=== PATIENT | male | born 1965 | race Caucasian/White ===

== ENCOUNTER 2022-08-09 20:55 | Inpatient (IN) | payer OTHER ==
[2022-08-09 21:32] VITALS: BMI 25.2
[2022-08-09] MEDS ORDERED: NALOXONE HCL 0.4 MG/ML VIAL IM PRN (22:17)
[2022-08-09] MEDS ORDERED: guaiFENesin 600 MG TABLET.ER (FP) PO PRN (22:17)
[2022-08-09] MEDS ORDERED: MAGNESIUM HYDROX 2400MG/30ML ORAL SUSPENSION 30 ML CUP PO PRN (22:17)
[2022-08-09] MEDS ORDERED: DICYCLOMINE HCL 10 MG CAPSULE PO PRN (22:17)
[2022-08-09] MEDS ORDERED: BENZONATATE 200 MG CAPSULE PO PRN (22:17)
[2022-08-09] MEDS ORDERED: ACETAMINOPHEN 325 MG TABLET (FP) PO PRN (22:17)
[2022-08-09] MEDS ORDERED: NALOXONE HCL (KLOXXADO) 8 MG SPRAY NS PRN (22:17)
[2022-08-09] MEDS ORDERED: hydrOXYzine PAMOATE 25 MG CAPSULE (FP) PO PRN (22:17)
[2022-08-09] MEDS ORDERED: LOPERAMIDE HCL 2 MG CAPSULE PO PRN (22:17)
[2022-08-09] MEDS ORDERED: MAG HYDROX/AL HYDROX/SIMETH 30 ML UNIT-DOSE CUP PO PRN (22:17)
[2022-08-09] MEDS ORDERED: POLYETHYLENE GLYCOL (HEALTHYLAX) 3350 17 GM PACKET PO PRN (22:17)
[2022-08-09] MEDS ORDERED: NICOTINE 10 MG CARTRIDGE (INHALER) IH PRN (22:17)
[2022-08-09] MEDS ORDERED: IBUPROFEN 600 MG TABLET (FP) PO PRN (22:17)
[2022-08-09] MEDS ORDERED: BISMUTH SUBSALICYLATE 524 MG/30 ML PO PRN (22:17)
[2022-08-09] MEDS ORDERED: IBUPROFEN 400 MG TABLET (FP) PO PRN (22:17)
[2022-08-09] MEDS ORDERED: BENZOCAINE/MENTHOL (CHLORASEPTIC ) LOZENGE MM PRN (22:17)
[2022-08-09] MEDS ORDERED: ONDANSETRON *ODT* 4 MG TABLET SL PRN (22:17)
[2022-08-10 09:40] VITALS: PULSE 82
[2022-08-10] MEDS ORDERED: PRENATAL VITAMINS W/ FOLIC ACID TABLET (FP) PO SCH (10:00)
[2022-08-10 12:54] VITALS: BP 126/75; RESP 17; TEMP 98.9
[2022-08-10] MEDS ORDERED: MELATONIN 5 MG TABLETS PO SCH (22:00)
[2022-08-10] MEDS ORDERED: THIAMINE HCL 100 MG TABLET (FP) PO SCH (22:00)
== END 2022-08-10 16:48 | disposition other institution (70) | DRG 774 ==
LOC: YASAS 20:55 → Y3N 23:54 → UNDOADMIN 23:54
PROVIDERS: ADMIT Allergy & Immunology; ATTEND Surgery
PROC: HZ2ZZZZ Detoxification Services for Substance Abuse Treatment (ICD-10-PCS; principal; 2022-08-09)
DX: F10.20 Alcohol dependence, uncomplicated (principal); F14.20 Cocaine dependence, uncomplicated; F17.210 Nicotine dependence, cigarettes, uncomplicated; F10.982 Alcohol use, unspecified with alcohol-induced sleep disorder; F19.24 Other psychoactive substance dependence with psychoactive substance-induced mood disorder; Z86.59 Personal history of other mental and behavioral disorders; Z28.310 Unvaccinated for COVID-19; Z28.9 Immunization not carried out for unspecified reason
CPT/HCPCS: 0241U-QW; 36415; 71046-TC-FY; 74177-TC; 80053; 81003; 83605; 83735; 85025; 85610; 85730; 86780; 87086; 99283-25; Q9967

== ENCOUNTER 2022-08-10 17:10 | Inpatient (IN) | payer OTHER ==
[2022-08-10] MEDS ORDERED: LOPERAMIDE HCL 2 MG CAPSULE PO PRN (20:01)
[2022-08-10] MEDS ORDERED: BENZONATATE 200 MG CAPSULE PO PRN (20:01)
[2022-08-10] MEDS ORDERED: MAGNESIUM HYDROX 2400MG/30ML ORAL SUSPENSION 30 ML CUP PO PRN (20:01)
[2022-08-10] MEDS ORDERED: P-EPHED 60MG/TRIPROLIDI 2.5MG TABLET PO PRN (20:01)
[2022-08-10] MEDS ORDERED: ACETAMINOPHEN 325 MG TABLET (FP) PO PRN (20:01)
[2022-08-10] MEDS ORDERED: BENZOCAINE/MENTHOL (CHLORASEPTIC ) LOZENGE MM PRN (20:01)
[2022-08-10] MEDS ORDERED: POLYETHYLENE GLYCOL (HEALTHYLAX) 3350 17 GM PACKET PO PRN (20:01)
[2022-08-10] MEDS ORDERED: guaiFENesin 600 MG TABLET.ER (FP) PO PRN (20:01)
[2022-08-10] MEDS ORDERED: NICOTINE POLACRILEX 2 MG GUM BUC PRN (20:01)
[2022-08-10] MEDS ORDERED: AMMONIUM LACTATE 12% LOTION 225 GM BOTTLE TP PRN (20:01)
[2022-08-10] MEDS ORDERED: IBUPROFEN 600 MG TABLET (FP) PO PRN (20:01)
[2022-08-10] MEDS ORDERED: COLLOIDAL OATMEAL 1 BAR EACH TP PRN (20:01)
[2022-08-10] MEDS ORDERED: NALOXONE HCL (KLOXXADO) 8 MG SPRAY NS PRN (20:01)
[2022-08-10] MEDS ORDERED: NICOTINE 10 MG CARTRIDGE (INHALER) IH PRN (20:01)
[2022-08-10] MEDS ORDERED: METHOCARBAMOL 500 MG TABLET PO PRN (20:01)
[2022-08-10] MEDS ORDERED: IBUPROFEN 400 MG TABLET (FP) PO PRN (20:01)
[2022-08-10] MEDS ORDERED: hydrOXYzine PAMOATE 25 MG CAPSULE (FP) PO PRN (20:01)
[2022-08-10] MEDS ORDERED: NALOXONE HCL 0.4 MG/ML VIAL IVPUSH PRN (20:01)
[2022-08-10] MEDS: THIAMINE HCL 100 MG TABLET (FP) PO SCH (23:08)
[2022-08-11] MEDS: PRENATAL VITAMINS W/ FOLIC ACID TABLET (FP) PO SCH (09:32)
[2022-08-11] MEDS: MELATONIN 5 MG TABLETS PO PRN (21:09)
[2022-08-11] MEDS: THIAMINE HCL 100 MG TABLET (FP) PO SCH (21:09)
[2022-08-12] MEDS: PRENATAL VITAMINS W/ FOLIC ACID TABLET (FP) PO SCH (09:41)
[2022-08-12] MEDS: THIAMINE HCL 100 MG TABLET (FP) PO SCH (21:04)
[2022-08-12] MEDS: MELATONIN 5 MG TABLETS PO PRN (21:04)
[2022-08-13] MEDS: PRENATAL VITAMINS W/ FOLIC ACID TABLET (FP) PO SCH (09:19)
[2022-08-13] MEDS: THIAMINE HCL 100 MG TABLET (FP) PO SCH (21:11)
[2022-08-13] MEDS: MELATONIN 5 MG TABLETS PO PRN (21:11)
[2022-08-14] MEDS: PRENATAL VITAMINS W/ FOLIC ACID TABLET (FP) PO SCH (09:37)
[2022-08-14 13:20] LABS: SYPHILIS W/ RPR CONF NON-REACTIVE (NONREACTIVE)
[2022-08-14] MEDS: THIAMINE HCL 100 MG TABLET (FP) PO SCH (21:29)
[2022-08-14] MEDS: MELATONIN 5 MG TABLETS PO PRN (21:29)
[2022-08-15] MEDS: PRENATAL VITAMINS W/ FOLIC ACID TABLET (FP) PO SCH (09:36)
[2022-08-15] MEDS: MELATONIN 5 MG TABLETS PO PRN (21:45)
[2022-08-15] MEDS: THIAMINE HCL 100 MG TABLET (FP) PO SCH (21:45)
[2022-08-16] MEDS: PRENATAL VITAMINS W/ FOLIC ACID TABLET (FP) PO SCH (09:22)
[2022-08-16] MEDS: MELATONIN 5 MG TABLETS PO PRN (21:20)
[2022-08-16] MEDS: THIAMINE HCL 100 MG TABLET (FP) PO SCH (21:21)
[2022-08-17] MEDS: PRENATAL VITAMINS W/ FOLIC ACID TABLET (FP) PO SCH (09:56)
[2022-08-17] MEDS: THIAMINE HCL 100 MG TABLET (FP) PO SCH (21:11)
[2022-08-17] MEDS: MELATONIN 5 MG TABLETS PO PRN (21:12)
[2022-08-17] MEDS: MAG HYDROX/AL HYDROX/SIMETH 30 ML UNIT-DOSE CUP PO PRN (21:12)
[2022-08-18] MEDS: PRENATAL VITAMINS W/ FOLIC ACID TABLET (FP) PO SCH (10:07)
[2022-08-18] MEDS: THIAMINE HCL 100 MG TABLET (FP) PO SCH (21:14)
[2022-08-18] MEDS: MELATONIN 5 MG TABLETS PO PRN (21:15)
[2022-08-18] MEDS: MAG HYDROX/AL HYDROX/SIMETH 30 ML UNIT-DOSE CUP PO PRN (21:15)
[2022-08-18] MEDS: traZODone HCL 50 MG TABLET (FP) PO SCH (21:15)
[2022-08-19] MEDS: PRENATAL VITAMINS W/ FOLIC ACID TABLET (FP) PO SCH (10:28)
[2022-08-19] MEDS: MAG HYDROX/AL HYDROX/SIMETH 30 ML UNIT-DOSE CUP PO PRN ×2 (10:29→21:06)
[2022-08-19] MEDS: MELATONIN 5 MG TABLETS PO PRN (21:03)
[2022-08-19] MEDS: SIMETHICONE 80 MG TAB.CHEW (FP) PO PRN (21:04)
[2022-08-19] MEDS: traZODone HCL 50 MG TABLET (FP) PO SCH (21:04)
[2022-08-19] MEDS: THIAMINE HCL 100 MG TABLET (FP) PO SCH (21:05)
[2022-08-20] MEDS: SIMETHICONE 80 MG TAB.CHEW (FP) PO PRN ×3 (06:20→21:44)
[2022-08-20] MEDS: PRENATAL VITAMINS W/ FOLIC ACID TABLET (FP) PO SCH (09:40)
[2022-08-20] MEDS: traZODone HCL 50 MG TABLET (FP) PO SCH (21:42)
[2022-08-20] MEDS: MELATONIN 5 MG TABLETS PO PRN (21:42)
[2022-08-20] MEDS: THIAMINE HCL 100 MG TABLET (FP) PO SCH (21:42)
[2022-08-21] MEDS: MAG HYDROX/AL HYDROX/SIMETH 30 ML UNIT-DOSE CUP PO PRN ×2 (06:36→15:03)
[2022-08-21] MEDS: PRENATAL VITAMINS W/ FOLIC ACID TABLET (FP) PO SCH (10:01)
[2022-08-21] MEDS: SIMETHICONE 80 MG TAB.CHEW (FP) PO PRN ×2 (10:01→21:46)
[2022-08-21] MEDS: THIAMINE HCL 100 MG TABLET (FP) PO SCH (21:44)
[2022-08-21] MEDS: traZODone HCL 50 MG TABLET (FP) PO SCH (21:44)
[2022-08-22] MEDS: PRENATAL VITAMINS W/ FOLIC ACID TABLET (FP) PO SCH (09:26)
[2022-08-22] MEDS: SIMETHICONE 80 MG TAB.CHEW (FP) PO PRN ×2 (09:27→21:30)
[2022-08-22] MEDS: MELATONIN 5 MG TABLETS PO PRN (21:29)
[2022-08-22] MEDS: THIAMINE HCL 100 MG TABLET (FP) PO SCH (21:29)
[2022-08-22] MEDS: traZODone HCL 50 MG TABLET (FP) PO SCH (21:30)
[2022-08-23] MEDS: PRENATAL VITAMINS W/ FOLIC ACID TABLET (FP) PO SCH (09:29)
[2022-08-23] MEDS: SIMETHICONE 80 MG TAB.CHEW (FP) PO PRN ×2 (09:30→21:30)
[2022-08-23] MEDS: THIAMINE HCL 100 MG TABLET (FP) PO SCH (21:30)
[2022-08-23] MEDS: MELATONIN 5 MG TABLETS PO PRN (21:30)
[2022-08-23] MEDS: traZODone HCL 50 MG TABLET (FP) PO SCH (21:30)
[2022-08-24 06:50] VITALS: BP 116/80; PULSE 94; RESP 16; TEMP 97.1
[2022-08-24] MEDS: PRENATAL VITAMINS W/ FOLIC ACID TABLET (FP) PO SCH (09:17)
[2022-08-24] MEDS: SIMETHICONE 80 MG TAB.CHEW (FP) PO PRN (09:18)
== END 2022-08-24 09:26 | disposition home or self-care (01) | DRG 772 ==
LOC: YASAS 17:10 → Y3E 17:14
PROVIDERS: ADMIT Allergy & Immunology; ATTEND Psychiatry & Neurology Pain Medicine
PROC: HZ42ZZZ Group Counseling for Substance Abuse Treatment, Cognitive-Behavioral (ICD-10-PCS; principal; 2022-08-10)
DX: F10.20 Alcohol dependence, uncomplicated (principal); F14.20 Cocaine dependence, uncomplicated; F17.210 Nicotine dependence, cigarettes, uncomplicated; F19.24 Other psychoactive substance dependence with psychoactive substance-induced mood disorder; F10.282 Alcohol dependence with alcohol-induced sleep disorder; Y92.238 Other place in hospital as the place of occurrence of the external cause; Y08.89XA Assault by other specified means, initial encounter
CPT/HCPCS: 36415; 86780; 86803; 87522

== ENCOUNTER 2022-09-06 12:58 | Emergency (ER) | payer OTHER ==
[2022-09-06 13:03] VITALS: BP 116/62; PULSE 95; RESP 18; TEMP 98.2; BMI 27.7
[2022-09-06] MEDS ORDERED: KETOROLAC TROMETHAMINE 30 MG/1 ML VIAL IM ONE (14:01)
[2022-09-06] MEDS ORDERED: KETOROLAC TROMETHAMINE 30 MG/1 ML VIAL ONE (14:03)
== END 2022-09-06 14:49 | disposition home or self-care (01) ==
LOC: JERFT 12:58
PROC: 3E0233Z Introduction of Anti-inflammatory into Muscle, Percutaneous Approach (ICD-10-PCS; principal; 2022-09-06)
DX: M25.512 Pain in left shoulder (principal)
CPT/HCPCS: 73030-TC-LT-FY; 99284-25

== ENCOUNTER 2022-09-13 13:59 | Emergency (ER) | payer OTHER ==
[2022-09-13 14:09] VITALS: BP 135/81; PULSE 88; RESP 18; TEMP 98.1; BMI 26.4
[2022-09-13] MEDS ORDERED: DEXAMETHASONE SOD PHOSPHATE 20 MG/5 ML VIAL IVPUSH ONE (15:32)
[2022-09-13] MEDS ORDERED: FAMOTIDINE 20 MG/50 ML IVPB 20 MG/50 ML MG IVPB ONE ×2 (15:33→15:42)
[2022-09-13] MEDS ORDERED: DEXAMETHASONE SOD PHOSPHATE 10 MG/1 ML VIAL ONE (15:42)
[2022-09-13 16:21] LABS: EOS % 3.9 % (0-4.5); HEMATOCRIT 43.4 % (35.4-49); HEMOGLOBIN 14.7 GM/dL (11.7-16.9); LYMPH % 20.8 % (8-40); MCH 29.2 pg (25.7-33.7); MCHC 33.9 g/dl (32.0-35.9); MEAN CELL VOLUME 85.9 fl (80-96); MEAN PLT VOLUME 7.4 fl (7.5-11.1); MONO % 6.3 % (3.8-10.2); PLATELET COUNT 225 10^3/uL (134-434); RBC 5.05 M/mm3 (4.00-5.60); RDW 14.7 % (11.9-15.9); WHITE BLOOD COUNT 7.9 K/mm3 (4.0-10.0)
[2022-09-13 16:39] LABS: POTASSIUM 4.1 mmol/L (3.5-5.1)
[2022-09-13 16:42] LABS: CALCIUM 9.4 mg/dL (8.5-10.1)
[2022-09-13 16:43] LABS: ALBUMIN 3.9 g/dl (3.4-5.0)
[2022-09-13 16:47] LABS: BILIRUBIN,TOTAL 0.3 mg/dL (0.2-1); TOT PROT 6.9 g/dl (6.4-8.2)
[2022-09-13 18:20] LABS: SYPHILIS W/ RPR CONF NON-REACTIVE (NONREACTIVE)
[2022-09-13 18:49] LABS: HIV INTERPRETATION NEGATIVE (NEGATIVE)
== END 2022-09-13 18:43 | disposition home or self-care (01) ==
LOC: JERFT 13:59
PROC: 3E033GC Introduction of Other Therapeutic Substance into Peripheral Vein, Percutaneous Approach (ICD-10-PCS; principal; 2022-09-13)
PROC: 3E033GC Introduction of Other Therapeutic Substance into Peripheral Vein, Percutaneous Approach (ICD-10-PCS; 2022-09-13)
PROC: 3E033GC Introduction of Other Therapeutic Substance into Peripheral Vein, Percutaneous Approach (ICD-10-PCS; 2022-09-13)
DX: R21 Rash and other nonspecific skin eruption (principal)
CPT/HCPCS: 36415; 80053; 85025; 86780; 87389; 87651; 99284-25

== ENCOUNTER 2022-09-21 12:52 | Emergency (ER) | payer OTHER ==
[2022-09-21 13:02] VITALS: BP 127/82; PULSE 83; RESP 18; TEMP 98.1; BMI 26.4
== END 2022-09-21 13:55 | disposition home or self-care (01) ==
LOC: JERFT 12:52
DX: R21 Rash and other nonspecific skin eruption (principal)
CPT/HCPCS: 99283-25

== ENCOUNTER 2022-11-11 09:50 | Inpatient (IN) | payer OTHER ==
[2022-11-11 11:40] VITALS: BMI 26.4
[2022-11-11] MEDS ORDERED: IBUPROFEN 600 MG TABLET (FP) PO PRN (13:31)
[2022-11-11] MEDS ORDERED: IBUPROFEN 400 MG TABLET (FP) PO PRN (13:31)
[2022-11-11] MEDS ORDERED: COLLOIDAL OATMEAL 1 BAR EACH TP PRN (13:31)
[2022-11-11] MEDS ORDERED: NICOTINE POLACRILEX 2 MG GUM BUC PRN (13:31)
[2022-11-11] MEDS ORDERED: LOPERAMIDE HCL 2 MG CAPSULE PO PRN (13:31)
[2022-11-11] MEDS ORDERED: P-EPHED 60MG/TRIPROLIDI 2.5MG TABLET PO PRN (13:31)
[2022-11-11] MEDS ORDERED: AMMONIUM LACTATE 12% LOTION 225 GM BOTTLE TP PRN (13:31)
[2022-11-11] MEDS ORDERED: ACETAMINOPHEN 325 MG TABLET (FP) PO PRN (13:31)
[2022-11-11] MEDS ORDERED: POLYETHYLENE GLYCOL (HEALTHYLAX) 3350 17 GM PACKET PO PRN (13:31)
[2022-11-11] MEDS ORDERED: MAG HYDROX/AL HYDROX/SIMETH 30 ML UNIT-DOSE CUP PO PRN (13:31)
[2022-11-11] MEDS ORDERED: guaiFENesin 600 MG TABLET.ER (FP) PO PRN (13:31)
[2022-11-11] MEDS ORDERED: hydrOXYzine PAMOATE 25 MG CAPSULE (FP) PO PRN (13:31)
[2022-11-11] MEDS ORDERED: MAGNESIUM HYDROX 2400MG/30ML ORAL SUSPENSION 30 ML CUP PO PRN (13:31)
[2022-11-11] MEDS ORDERED: BENZONATATE 200 MG CAPSULE PO PRN (13:31)
[2022-11-11] MEDS ORDERED: BENZOCAINE/MENTHOL (CHLORASEPTIC ) LOZENGE MM PRN (13:31)
[2022-11-11] MEDS: MELATONIN 5 MG TABLETS PO SCH (21:37)
[2022-11-11] MEDS: THIAMINE HCL 100 MG TABLET (FP) PO SCH (21:37)
[2022-11-12] MEDS ORDERED: PRENATAL VITAMINS W/ FOLIC ACID TABLET (FP) PO SCH (10:00)
[2022-11-12] MEDS ORDERED: PRENATAL VITAMINS W/ FOLIC ACID TABLET (FP) PO PRN (10:16)
[2022-11-12 11:37] LABS: POTASSIUM 4.4 mmol/L (3.5-5.1)
[2022-11-12 11:47] LABS: HEMATOCRIT 43.6 % (35.4-49); HEMOGLOBIN 14.3 GM/dL (11.7-16.9); MCH 29.7 pg (25.7-33.7); MCHC 32.9 g/dl (32.0-35.9); MEAN CELL VOLUME 90.3 fl (80-96); MEAN PLT VOLUME 8.5 fl (7.5-11.1); PLATELET COUNT 219 10^3/uL (134-434); RBC 4.83 M/mm3 (4.00-5.60); RDW 14.5 % (11.9-15.9); WHITE BLOOD COUNT 7.1 K/mm3 (4.0-10.0)
[2022-11-12 12:07] LABS: ALBUMIN 3.4 g/dl (3.4-5.0); BLOOD UREA NITROGEN 14.5 mg/dL (7-18); CALCIUM 8.3 mg/dL (8.5-10.1)
[2022-11-12 12:08] LABS: CREATININE 0.9 mg/dL (0.55-1.3)
[2022-11-12 12:09] LABS: BILIRUBIN,TOTAL 0.3 mg/dL (0.2-1)
[2022-11-12 12:10] LABS: TOT PROT 5.8 g/dl (6.4-8.2)
[2022-11-12] MEDS: MELATONIN 5 MG TABLETS PO SCH (21:53)
[2022-11-12] MEDS: THIAMINE HCL 100 MG TABLET (FP) PO SCH (21:54)
[2022-11-13 10:11] VITALS: BP 131/77; PULSE 79; RESP 18; TEMP 96.9
[2022-11-13] MEDS: THIAMINE HCL 100 MG TABLET (FP) PO SCH (22:53)
[2022-11-13] MEDS: MELATONIN 5 MG TABLETS PO SCH (22:53)
== END 2022-11-13 23:55 | disposition short-term general hospital (02) | DRG 774 ==
LOC: YASAS 09:50 → Y3E 15:20
PROVIDERS: ADMIT Allergy & Immunology; ATTEND Psychiatry & Neurology Pain Medicine
PROC: HZ2ZZZZ Detoxification Services for Substance Abuse Treatment (ICD-10-PCS; principal; 2022-11-11)
DX: F14.20 Cocaine dependence, uncomplicated (principal); F12.10 Cannabis abuse, uncomplicated; F17.210 Nicotine dependence, cigarettes, uncomplicated; R07.9 Chest pain, unspecified; Z28.310 Unvaccinated for COVID-19; Z28.9 Immunization not carried out for unspecified reason
CPT/HCPCS: 36415; 80053; 85027; 86780; 87635; 87811

== ENCOUNTER 2022-11-13 10:50 | Observation (INO) | payer OTHER ==
[2022-11-13 11:38] VITALS: BMI 23.7
[2022-11-13 12:07] LABS: BASO % 0.8 % (0-2.0); EOS % 2.2 % (0-4.5); HEMATOCRIT 43.6 % (35.4-49); HEMOGLOBIN 14.5 GM/dL (11.7-16.9); LYMPH % 14.7 % (8-40); MCH 29.5 pg (25.7-33.7); MCHC 33.2 g/dl (32.0-35.9); MEAN PLT VOLUME 8.1 fl (7.5-11.1); MONO % 7.4 % (3.8-10.2); NEUT % 74.9 % (42.8-82.8); PLATELET COUNT 241 10^3/uL (134-434); RDW 14.5 % (11.9-15.9)
[2022-11-13 12:15] LABS: INR 0.99 (0.83-1.09); PROTHROMBIN TIME (PATIENT) 11.5 SEC (9.7-13.0)
[2022-11-13 12:22] LABS: POTASSIUM 4.4 mmol/L (3.5-5.1)
[2022-11-13 12:24] LABS: ALBUMIN 3.6 g/dl (3.4-5.0); BLOOD UREA NITROGEN 15.8 mg/dL (7-18); CALCIUM 8.8 mg/dL (8.5-10.1)
[2022-11-13 12:29] LABS: BILIRUBIN,TOTAL 0.3 mg/dL (0.2-1); CREATININE 0.8 mg/dL (0.55-1.3); TOT PROT 6.3 g/dl (6.4-8.2)
[2022-11-13] MEDS ORDERED: ACETAMINOPHEN 1000 MG/100 ML BAG IVPB ONE (13:31)
[2022-11-13] MEDS ORDERED: METHOCARBAMOL 500 MG TABLET PO ONE (13:31)
[2022-11-13] MEDS ORDERED: ACETAMINOPHEN INJECTION 100 ML IVPB ONE (14:56)
[2022-11-13] MEDS ORDERED: METHOCARBAMOL 500 MG TABLET ONE (14:56)
[2022-11-13] MEDS ORDERED: IBUPROFEN 600 MG TABLET (FP) PO PRN (17:14)
[2022-11-13] MEDS ORDERED: AZITHROMYCIN IVPB 500 MG/250 ML BAG IVPB SCH (17:15)
[2022-11-13] MEDS ORDERED: CEFTRIAXONE 1 GM/50 ML BAG ONE (18:08)
[2022-11-13] MEDS ORDERED: AZITHROMYCIN IVPB 500 MG/250 ML BAG IVPB ONE (18:21)
[2022-11-13] MEDS: HEPARIN NA (PORCINE) 5,000 UNITS/ML 1ML VIAL SQ SCH (22:06)
[2022-11-13] MEDS: METHOCARBAMOL 500 MG TABLET PO SCH (22:08)
[2022-11-13] MEDS: traZODone HCL 50 MG TABLET (FP) PO SCH (22:08)
[2022-11-14] MEDS: AMOX TR/POT CLAV 875MG/125MG TABLETS (FP) PO SCH ×2 (08:42→17:18)
[2022-11-14] MEDS: NICOTINE 14 MG/24 HOURS TOPICAL PATCH TD SCH (09:36)
[2022-11-14] MEDS: METHOCARBAMOL 500 MG TABLET PO SCH ×2 (09:36→21:38)
[2022-11-14] MEDS: HEPARIN NA (PORCINE) 5,000 UNITS/ML 1ML VIAL SQ SCH ×2 (09:36→21:38)
[2022-11-14] MEDS ORDERED: HYDROCORTISONE 1% TOPICAL CREAM 30 GM TUBE TP PRN (10:45)
[2022-11-14] MEDS: traZODone HCL 50 MG TABLET (FP) PO SCH (21:38)
[2022-11-15] MEDS: DOXYCYCLINE HYCLATE 100 MG CAPSULE PO SCH ×2 (09:27→19:10)
[2022-11-15] MEDS: HEPARIN NA (PORCINE) 5,000 UNITS/ML 1ML VIAL SQ SCH ×2 (09:27→22:08)
[2022-11-15] MEDS: NICOTINE 14 MG/24 HOURS TOPICAL PATCH TD SCH (09:28)
[2022-11-15] MEDS: METHOCARBAMOL 500 MG TABLET PO SCH ×2 (09:28→22:07)
[2022-11-15 11:19] LABS: BASO % 0.8 % (0-2.0); EOS % 2.7 % (0-4.5); HEMATOCRIT 43.8 % (35.4-49); HEMOGLOBIN 15.3 GM/dL (11.7-16.9); LYMPH % 16.4 % (8-40); MCH 30.3 pg (25.7-33.7); MEAN CELL VOLUME 86.6 fl (80-96); MEAN PLT VOLUME 7.7 fl (7.5-11.1); MONO % 6.4 % (3.8-10.2); NEUT % 73.7 % (42.8-82.8); PLATELET COUNT 257 10^3/uL (134-434); RBC 5.05 M/mm3 (4.00-5.60); RDW 14.4 % (11.9-15.9); WHITE BLOOD COUNT 7.1 K/mm3 (4.0-10.0)
[2022-11-15 11:42] LABS: POTASSIUM 4.4 mmol/L (3.5-5.1)
[2022-11-15 11:47] LABS: ALBUMIN 3.8 g/dl (3.4-5.0); BLOOD UREA NITROGEN 15.7 mg/dL (7-18)
[2022-11-15 11:48] LABS: CALCIUM 8.7 mg/dL (8.5-10.1); MAGNESIUM 2.1 mg/dL (1.8-2.4)
[2022-11-15 11:50] LABS: CREATININE 0.9 mg/dL (0.55-1.3)
[2022-11-15 11:51] LABS: TOT PROT 6.8 g/dl (6.4-8.2)
[2022-11-15 11:52] LABS: BILIRUBIN,TOTAL 0.5 mg/dL (0.2-1)
[2022-11-15] MEDS: traZODone HCL 50 MG TABLET (FP) PO SCH (22:08)
[2022-11-16] MEDS: METHOCARBAMOL 500 MG TABLET PO SCH ×2 (10:11→21:58)
[2022-11-16] MEDS: DOXYCYCLINE HYCLATE 100 MG CAPSULE PO SCH ×2 (10:11→18:52)
[2022-11-16] MEDS: NICOTINE 14 MG/24 HOURS TOPICAL PATCH TD SCH (10:11)
[2022-11-16] MEDS: HEPARIN NA (PORCINE) 5,000 UNITS/ML 1ML VIAL SQ SCH ×2 (10:11→22:00)
[2022-11-16 15:28] LABS: EOS % 3.6 % (0-4.5); HEMATOCRIT 42.2 % (35.4-49); HEMOGLOBIN 14.5 GM/dL (11.7-16.9); LYMPH % 20.2 % (8-40); MCHC 34.3 g/dl (32.0-35.9); MEAN CELL VOLUME 87.4 fl (80-96); MEAN PLT VOLUME 7.6 fl (7.5-11.1); MONO % 7.6 % (3.8-10.2); NEUT % 67.6 % (42.8-82.8); PLATELET COUNT 252 10^3/uL (134-434); RBC 4.83 M/mm3 (4.00-5.60); RDW 14.6 % (11.9-15.9); WHITE BLOOD COUNT 7.2 K/mm3 (4.0-10.0)
[2022-11-16 15:47] LABS: POTASSIUM 4.4 mmol/L (3.5-5.1)
[2022-11-16 15:51] LABS: CALCIUM 8.9 mg/dL (8.5-10.1)
[2022-11-16 15:53] LABS: ALBUMIN 3.7 g/dl (3.4-5.0)
[2022-11-16 15:57] LABS: TOT PROT 6.4 g/dl (6.4-8.2)
[2022-11-16 15:58] LABS: BILIRUBIN,TOTAL 0.3 mg/dL (0.2-1)
[2022-11-16 19:17] LABS: COCAINE, UR NEGATIVE (NEGATIVE); URINE AMPHETAMINES NEGATIVE (NEGATIVE)
[2022-11-16 19:18] LABS: OPIATES, URI NEGATIVE (NEGATIVE); PHENCYCLIDINE,URINE NEGATIVE (NEGATIVE)
[2022-11-16 19:29] LABS: METHADONE, UR NEGATIVE (NEGATIVE); URINE BARBITURATES NEGATIVE (NEGATIVE); URINE BENZODIAZEPINES NEGATIVE (NEGATIVE)
[2022-11-16] MEDS: traZODone HCL 50 MG TABLET (FP) PO SCH (21:59)
[2022-11-17] MEDS: HEPARIN NA (PORCINE) 5,000 UNITS/ML 1ML VIAL SQ SCH (10:34)
[2022-11-17] MEDS: METHOCARBAMOL 500 MG TABLET PO SCH (12:01)
[2022-11-17] MEDS: NICOTINE 14 MG/24 HOURS TOPICAL PATCH TD SCH (12:01)
[2022-11-17] MEDS: DOXYCYCLINE HYCLATE 100 MG CAPSULE PO SCH (12:02)
[2022-11-17 15:26] VITALS: BP 118/74; PULSE 85; RESP 18; TEMP 97.9
== END 2022-11-17 18:51 | disposition home or self-care (01) ==
LOC: JER 10:50 → JERBED 17:01 → J8W 21:06
PROVIDERS: ADMIT Internal Medicine; ATTEND Nurse Practitioner Family
PROC: 3E033NZ Introduction of Analgesics, Hypnotics, Sedatives into Peripheral Vein, Percutaneous Approach (ICD-10-PCS; principal; 2022-11-13)
PROC: 3E03329 Introduction of Other Anti-infective into Peripheral Vein, Percutaneous Approach (ICD-10-PCS; 2022-11-13)
DX: J18.9 Pneumonia, unspecified organism (principal); F14.20 Cocaine dependence, uncomplicated; F10.20 Alcohol dependence, uncomplicated; F31.9 Bipolar disorder, unspecified; F19.94 Other psychoactive substance use, unspecified with psychoactive substance-induced mood disorder; R07.9 Chest pain, unspecified; M25.60 Stiffness of unspecified joint, not elsewhere classified; R21 Rash and other nonspecific skin eruption; F17.200 Nicotine dependence, unspecified, uncomplicated
CPT/HCPCS: 36415; 71045-TC-FY; 71046-TC-FY; 73502-TC-RT-FY; 78452-TC; 80053; 80061; 80307; 82550; 83036; 83735; 84443; 84484; 85025; 85610; 85651; 86140; 86618; 87040; 87635; 87798; 93005; 93010; 93017; 93306-TC; 96365; 96375; 97116-GP; 97161-GP; 99285-25; A9502; G0378; J1644

== ENCOUNTER 2022-11-22 16:42 | Emergency (ER) | payer OTHER ==
[2022-11-22 17:14] VITALS: BP 107/65; PULSE 74; RESP 18; TEMP 98.2; BMI 26.4
[2022-11-22] MEDS ORDERED: IBUPROFEN 600 MG TABLET (FP) PO ONE ×2 (21:43→22:07)
== END 2022-11-22 23:18 | disposition home or self-care (01) ==
LOC: JER 16:42
DX: S90.31XA Contusion of right foot, initial encounter (principal); R22.41 Localized swelling, mass and lump, right lower limb; W19.XXXA Unspecified fall, initial encounter
CPT/HCPCS: 73562-TC-RT-FY; 73610-TC-RT-FY; 73630-TC-RT-FY

== ENCOUNTER 2022-12-20 10:49 | Emergency (ER) | payer OTHER ==
[2022-12-20 11:08] VITALS: BP 148/90; PULSE 95; RESP 18; TEMP 97.2; BMI 26.4
== END 2022-12-20 13:14 | disposition home or self-care (01) ==
LOC: JER 10:49 → JERFT 10:49
DX: J06.9 Acute upper respiratory infection, unspecified (principal); R07.0 Pain in throat; R09.89 Other specified symptoms and signs involving the circulatory and respiratory systems; R05.9 Cough, unspecified; Z20.822 Contact with and (suspected) exposure to COVID-19
CPT/HCPCS: 0241U-QW; 71046-TC-FY; 99284-25

== ENCOUNTER 2023-03-29 18:09 | Emergency (ER) | payer OTHER ==
[2023-03-29 18:21] VITALS: BP 112/69; PULSE 87; RESP 18; TEMP 97.9; BMI 28.0
== END 2023-03-29 19:51 | disposition home or self-care (01) ==
LOC: JERFT 18:09
DX: R05.9 Cough, unspecified (principal); R09.82 Postnasal drip; Z20.822 Contact with and (suspected) exposure to COVID-19
CPT/HCPCS: 0241U-QW; 71046-TC-FY; 99284-25

== ENCOUNTER 2023-04-09 00:52 | Emergency (ER) | payer OTHER ==
[2023-04-09 01:02] VITALS: BP 131/78; PULSE 82; RESP 20; TEMP 97.5; BMI 26.4
[2023-04-09] MEDS ORDERED: LIDOCAINE 5% TOPICAL PATCH TP ONE (02:31)
[2023-04-09] MEDS ORDERED: KETOROLAC TROMETHAMINE 15 MG/ML VIAL IM ONE (02:31)
[2023-04-09] MEDS ORDERED: KETOROLAC TROMETHAMINE 15 MG/ML VIAL ONE (02:35)
[2023-04-09] MEDS ORDERED: LIDOCAINE 4% PATCH TP ONE (02:35)
[2023-04-09] MEDS ORDERED: LIDOCAINE PATCH REMOVAL MC SCH (22:00)
== END 2023-04-09 04:29 | disposition home or self-care (01) ==
LOC: JER 00:52
PROC: 3E0233Z Introduction of Anti-inflammatory into Muscle, Percutaneous Approach (ICD-10-PCS; principal; 2023-04-09)
DX: M79.604 Pain in right leg (principal); M54.50 Low back pain, unspecified; M25.551 Pain in right hip; R26.2 Difficulty in walking, not elsewhere classified; R46.1 Bizarre personal appearance
CPT/HCPCS: 73521-TC-FY; 99284-25

== ENCOUNTER 2023-07-04 09:20 | Inpatient (IN) | payer OTHER ==
[2023-07-04 09:51] VITALS: BMI 24.5
[2023-07-04] MEDS ORDERED: IBUPROFEN 600 MG TABLET (FP) PO PRN (10:45)
[2023-07-04] MEDS ORDERED: MAGNESIUM HYDROX 2400MG/30ML ORAL SUSPENSION 30 ML CUP PO PRN (10:45)
[2023-07-04] MEDS ORDERED: guaiFENesin 600 MG TABLET.ER (FP) PO PRN (10:45)
[2023-07-04] MEDS ORDERED: LOPERAMIDE HCL 2 MG CAPSULE PO PRN (10:45)
[2023-07-04] MEDS ORDERED: MAG HYDROX/AL HYDROX/SIMETH 30 ML UNIT-DOSE CUP PO PRN (10:45)
[2023-07-04] MEDS ORDERED: BENZOCAINE/MENTHOL (CHLORASEPTIC ) LOZENGE MM PRN (10:45)
[2023-07-04] MEDS ORDERED: IBUPROFEN 400 MG TABLET (FP) PO PRN (10:45)
[2023-07-04] MEDS ORDERED: NALOXONE HCL (KLOXXADO) 8 MG SPRAY NS PRN (10:45)
[2023-07-04] MEDS ORDERED: POLYETHYLENE GLYCOL (HEALTHYLAX) 3350 17 GM PACKET PO PRN (10:45)
[2023-07-04] MEDS ORDERED: NALOXONE HCL 0.4 MG/ML VIAL IM PRN (10:45)
[2023-07-04] MEDS ORDERED: BENZONATATE 200 MG CAPSULE PO PRN (10:45)
[2023-07-04] MEDS ORDERED: ACETAMINOPHEN 325 MG TABLET (FP) PO PRN (10:45)
[2023-07-04] MEDS: PRENATAL VITAMINS W/ FOLIC ACID TABLET (FP) PO SCH (13:14)
[2023-07-04 16:50] LABS: HIV INTERPRETATION NEGATIVE (NEGATIVE)
[2023-07-04 22:10] LABS: PH,URINE 8.5 (5.0-8.0); URINE APPEARANCE TURBID; URINE BILIRUBIN NEGATIVE (NEGATIVE); URINE COLOR YELLOW; URINE GLUCOSE (UA) NEGATIVE (NEGATIVE); URINE KETONE NEGATIVE (NEGATIVE); URINE LEUK ESTERASE NEGATIVE (NEGATIVE); URINE NITRITE NEGATIVE (NEGATIVE); URINE PROTEIN NEGATIVE (NEGATIVE); URINE UROBILINOGEN 0.2 mg/dL (0.2-1.0)
[2023-07-04] MEDS: THIAMINE 100 MG TABLET PO SCH (22:22)
[2023-07-04] MEDS: MELATONIN 5 MG TABLETS PO SCH (22:22)
[2023-07-05 11:49] LABS: HEMATOCRIT 44.2 % (35.4-49); MCH 29.8 pg (25.7-33.7); MCHC 33.9 g/dl (32.0-35.9); MEAN PLT VOLUME 7.6 fl (7.5-11.1); PLATELET COUNT 270 10^3/uL (134-434); RBC 5.02 M/mm3 (4.00-5.60); RDW 14.8 % (11.9-15.9)
[2023-07-05 11:53] LABS: POTASSIUM 4.3 mmol/L (3.5-5.1)
[2023-07-05 11:55] LABS: ALBUMIN 3.6 g/dl (3.4-5.0); BLOOD UREA NITROGEN 14.6 mg/dL (7-18)
[2023-07-05 11:58] LABS: CREATININE 0.8 mg/dL (0.55-1.3)
[2023-07-05 12:00] LABS: BILIRUBIN,TOTAL 0.3 mg/dL (0.2-1); TOT PROT 6.4 g/dl (6.4-8.2)
[2023-07-05 12:21] LABS: SYPHILIS W/ RPR CONF NON-REACTIVE (NONREACTIVE)
[2023-07-05] MEDS: BACLOFEN 10 MG TABLET (FP) PO SCH (21:49)
[2023-07-06] MEDS ORDERED: TUBERCULIN PPD 5 TU/0.1ML VIAL ID ONE (10:55)
[2023-07-06] MEDS: TUBERCULIN PPD 5 TU/0.1ML VIAL ID ONE (11:00)
[2023-07-07] MEDS: hydrOXYzine PAMOATE 25 MG CAPSULE (FP) PO PRN (21:34)
[2023-07-09 12:35] LABS: INR 0.82 (0.83-1.09); PROTHROMBIN TIME (PATIENT) 9.3 SEC (9.7-13.0)
[2023-07-12] MEDS: CHOLECALCIFEROL (VIT D3) 400 UNIT (10 MCG) TABLET PO SCH (09:42)
[2023-07-13 01:56] VITALS: RESP 18
[2023-07-13] MEDS: CLOTRIMAZOLE 1% CREAM TP SCH (14:53)
[2023-07-15] MEDS: LACTULOSE 20 GM/30 ML UDC (FOR ORAL USE ONLY) PO SCH (14:34)
[2023-07-18 06:46] VITALS: BP 127/73; PULSE 90; TEMP 97.4
== END 2023-07-18 13:19 | disposition home or self-care (01) | DRG 772 ==
LOC: YASAS 09:20 → Y3NR 13:19 → Y5N 07-05 18:58
PROVIDERS: ADMIT Allergy & Immunology; ATTEND Psychiatry & Neurology Pain Medicine
PROC: HZ42ZZZ Group Counseling for Substance Abuse Treatment, Cognitive-Behavioral (ICD-10-PCS; principal; 2023-07-04)
DX: F14.20 Cocaine dependence, uncomplicated (principal); F10.20 Alcohol dependence, uncomplicated; F17.210 Nicotine dependence, cigarettes, uncomplicated; F25.9 Schizoaffective disorder, unspecified; F90.9 Attention-deficit hyperactivity disorder, unspecified type; R21 Rash and other nonspecific skin eruption; M54.59 Other low back pain; G89.29 Other chronic pain; M79.671 Pain in right foot; E72.20 Disorder of urea cycle metabolism, unspecified; R10.2 Pelvic and perineal pain; B35.1 Tinea unguium; Z56.0 Unemployment, unspecified; Z59.00 Homelessness unspecified
CPT/HCPCS: 36415; 80053; 80305; 80307; 81003; 82140; 82306; 83735; 85027; 85610; 86780; 86803; 87389; 87491; 87522; 87591; 87661; 87811; J0475

== ENCOUNTER 2023-07-12 18:06 | Emergency (ER) | payer OTHER ==
[2023-07-12 18:32] VITALS: BP 135/81; PULSE 85; RESP 18; TEMP 98.1; BMI 23.7
[2023-07-12 19:43] LABS: URINE APPEARANCE CLEAR; URINE BILIRUBIN NEGATIVE (NEGATIVE); URINE COLOR YELLOW; URINE GLUCOSE (UA) NEGATIVE (NEGATIVE); URINE KETONE NEGATIVE (NEGATIVE); URINE LEUK ESTERASE NEGATIVE (NEGATIVE); URINE NITRITE NEGATIVE (NEGATIVE); URINE PROTEIN NEGATIVE (NEGATIVE); URINE UROBILINOGEN 0.2 mg/dL (0.2-1.0)
[2023-07-12 19:51] LABS: INR 0.93 (0.83-1.09); PROTHROMBIN TIME (PATIENT) 10.5 SEC (9.7-13.0)
[2023-07-12 19:53] LABS: ACTIVATED PTT 26.6 SECONDS (25.2-36.5)
[2023-07-12 19:58] LABS: BASO % 1.5 % (0-2.0); EOS % 2.7 % (0-4.5); HEMATOCRIT 37.6 % (35.4-49); HEMOGLOBIN 12.9 GM/dL (11.7-16.9); LYMPH % 24.1 % (8-40); MCH 29.9 pg (25.7-33.7); MCHC 34.2 g/dl (32.0-35.9); MEAN CELL VOLUME 87.4 fl (80-96); MEAN PLT VOLUME 7.2 fl (7.5-11.1); MONO % 9.9 % (3.8-10.2); NEUT % 61.8 % (42.8-82.8); PLATELET COUNT 240 10^3/uL (134-434); RBC 4.31 M/mm3 (4.00-5.60); RDW 14.5 % (11.9-15.9); WHITE BLOOD COUNT 7.6 K/mm3 (4.0-10.0)
[2023-07-12 20:03] LABS: POTASSIUM 4.4 mmol/L (3.5-5.1)
[2023-07-12 20:07] LABS: ALBUMIN 3.6 g/dl (3.4-5.0); BLOOD UREA NITROGEN 21.5 mg/dL (7-18); CALCIUM 8.8 mg/dL (8.5-10.1)
[2023-07-12 20:08] LABS: MAGNESIUM 2.1 mg/dL (1.8-2.4)
[2023-07-12 20:10] LABS: CREATININE 0.9 mg/dL (0.55-1.3)
[2023-07-12 20:12] LABS: BILIRUBIN,TOTAL 0.3 mg/dL (0.2-1); TOT PROT 6.4 g/dl (6.4-8.2)
== END 2023-07-13 01:43 | disposition home or self-care (01) ==
LOC: JER 18:06
DX: N50.82 Scrotal pain (principal); R10.2 Pelvic and perineal pain; R19.7 Diarrhea, unspecified; R68.83 Chills (without fever)
CPT/HCPCS: 36415; 71046-TC-FY; 74176-TC; 76870-TC; 80053; 81003; 83605; 83690; 83735; 85025; 85610; 85730; 87086; 93005; 93010; 99285-25

== ENCOUNTER 2023-08-14 16:23 | Observation (INO) | payer OTHER ==
[2023-08-14 17:21] LABS: BASO % 1.2 % (0-2.0); EOS % 4.3 % (0-4.5); HEMATOCRIT 39.5 % (35.4-49); HEMOGLOBIN 13.5 GM/dL (11.7-16.9); LYMPH % 19.4 % (8-40); MCH 29.6 pg (25.7-33.7); MCHC 34.1 g/dl (32.0-35.9); MEAN PLT VOLUME 7.4 fl (7.5-11.1); MONO % 9.1 % (3.8-10.2); PLATELET COUNT 248 10^3/uL (134-434); RBC 4.54 M/mm3 (4.00-5.60); RDW 14.3 % (11.9-15.9); WHITE BLOOD COUNT 5.9 K/mm3 (4.0-10.0)
[2023-08-14 17:28] LABS: INR 1.04 (0.83-1.09); PROTHROMBIN TIME (PATIENT) 11.7 SEC (9.7-13.0)
[2023-08-14 17:30] LABS: ACTIVATED PTT 30.7 SECONDS (25.2-36.5)
[2023-08-14 17:43] LABS: CHLORIDE 110 mmol/L (98-107); POTASSIUM 3.9 mmol/L (3.5-5.1); SODIUM 143 mmol/L (136-145)
[2023-08-14 17:45] LABS: CALCIUM 8.6 mg/dL (8.5-10.1)
[2023-08-14 17:46] LABS: ALBUMIN 3.5 g/dl (3.4-5.0); ANION GAP 4 mmol/L (4-13); CO2 30 mmol/L (21-32); GLUCOSE,RANDOM 80 mg/dL (74-106); MAGNESIUM 1.9 mg/dL (1.8-2.4)
[2023-08-14 17:48] LABS: SGPT/ALT 20 U/L (13-61)
[2023-08-14 17:49] LABS: CREATININE 1.1 mg/dL (0.55-1.3); SGOT/AST 13 U/L (15-37)
[2023-08-14 17:50] LABS: BILIRUBIN,TOTAL 0.4 mg/dL (0.2-1); TOT PROT 6.2 g/dl (6.4-8.2)
[2023-08-14 17:52] LABS: ALK PHOS 102 U/L (45-117)
[2023-08-14] MEDS: LACTATED RINGERS SOLUTION 1000 ML INFUS.BAG IV ONE (19:12)
[2023-08-14 20:47] LABS: URINE APPEARANCE CLEAR; URINE BILIRUBIN NEGATIVE (NEGATIVE); URINE COLOR YELLOW; URINE GLUCOSE (UA) NEGATIVE (NEGATIVE); URINE KETONE NEGATIVE (NEGATIVE); URINE LEUK ESTERASE NEGATIVE (NEGATIVE); URINE NITRITE NEGATIVE (NEGATIVE); URINE PROTEIN NEGATIVE (NEGATIVE)
[2023-08-14 21:01] LABS: METHADONE, UR NEGATIVE (NEGATIVE); URINE AMPHETAMINES NEGATIVE (NEGATIVE)
[2023-08-14 21:02] LABS: OPIATES, URI NEGATIVE (NEGATIVE); PHENCYCLIDINE,URINE NEGATIVE (NEGATIVE); URINE BARBITURATES NEGATIVE (NEGATIVE)
[2023-08-14 21:14] LABS: COCAINE, UR POSITIVE (NEGATIVE); URINE BENZODIAZEPINES POSITIVE (NEGATIVE)
[2023-08-15 02:34] LABS: ARTERIAL BLD GAS O2 SATURATION 88.1 % (95-98); ARTERIAL BLOOD GAS BASE EXCESS -1.3 mmol/L (-2-2); ARTERIAL BLOOD GAS PO2 55.8 mmHg (80-100); ARTERIAL BLOOD GAS pH 7.367 (7.350-7.450)
[2023-08-15 02:42] LABS: ALLENS TEST POSITIVE
[2023-08-15 03:38] VITALS: BMI 23.3
[2023-08-15 09:31] LABS: HEMATOCRIT 40.7 % (35.4-49); HEMOGLOBIN 13.7 GM/dL (11.7-16.9); MCH 29.6 pg (25.7-33.7); MCHC 33.7 g/dl (32.0-35.9); MEAN CELL VOLUME 87.7 fl (80-96); MEAN PLT VOLUME 7.8 fl (7.5-11.1); PLATELET COUNT 230 10^3/uL (134-434); RBC 4.64 M/mm3 (4.00-5.60); RDW 13.8 % (11.9-15.9); WHITE BLOOD COUNT 5.3 K/mm3 (4.0-10.0)
[2023-08-15 09:56] LABS: POTASSIUM 4.4 mmol/L (3.5-5.1)
[2023-08-15 09:59] LABS: BLOOD UREA NITROGEN 12.1 mg/dL (7-18); CALCIUM 8.6 mg/dL (8.5-10.1)
[2023-08-15 10:00] LABS: ALBUMIN 3.4 g/dl (3.4-5.0)
[2023-08-15] MEDS ORDERED: ENOXAPARIN NA (PORCINE) 40 MG/0.4 ML DISP.SYRIN SQ SCH (10:00)
[2023-08-15 10:02] LABS: CREATININE 0.9 mg/dL (0.55-1.3); PHOSPHOROUS 3.1 mg/dL (2.5-4.9)
[2023-08-15 10:04] LABS: BILIRUBIN,TOTAL 0.3 mg/dL (0.2-1); TOT PROT 5.9 g/dl (6.4-8.2)
[2023-08-15] MEDS ORDERED: LORazepam 1 MG TABLET PO PRN ×3 (10:44→16:57)
[2023-08-15] MEDS: MULTIVITAMINS (DAILY MVI) TABLET (FP) PO SCH (17:29)
[2023-08-15] MEDS: THIAMINE 100 MG TABLET PO SCH (17:30)
[2023-08-15] MEDS: LACTATED RINGERS SOLUTION 1,000 ML/1,000 ML INFUS.BAG IV SCH (17:30)
[2023-08-15] MEDS: FOLIC ACID 1 MG TABLET (FP) PO SCH (17:30)
[2023-08-16 07:37] LABS: HEMATOCRIT 39.8 % (35.4-49); HEMOGLOBIN 13.7 GM/dL (11.7-16.9); MCH 29.8 pg (25.7-33.7); MCHC 34.5 g/dl (32.0-35.9); MEAN CELL VOLUME 86.3 fl (80-96); MEAN PLT VOLUME 7.8 fl (7.5-11.1); PLATELET COUNT 240 10^3/uL (134-434); RBC 4.61 M/mm3 (4.00-5.60); RDW 13.8 % (11.9-15.9); WHITE BLOOD COUNT 5.9 K/mm3 (4.0-10.0)
[2023-08-16 07:44] LABS: POTASSIUM 4.1 mmol/L (3.5-5.1)
[2023-08-16 07:50] LABS: CALCIUM 8.6 mg/dL (8.5-10.1)
[2023-08-16 07:51] LABS: ALBUMIN 3.2 g/dl (3.4-5.0); BLOOD UREA NITROGEN 12.9 mg/dL (7-18); MAGNESIUM 1.7 mg/dL (1.8-2.4)
[2023-08-16 07:57] LABS: CREATININE 0.9 mg/dL (0.55-1.3); PHOSPHOROUS 3.4 mg/dL (2.5-4.9)
[2023-08-16 07:58] LABS: BILIRUBIN,TOTAL 0.4 mg/dL (0.2-1)
[2023-08-16] MEDS: MAGNESIUM SULF 50% (8.12 MEQ/2 ML-1 GM VIAL) IVPB ONE (11:17)
[2023-08-16 18:47] VITALS: RESP 18
[2023-08-17 07:21] LABS: HEMATOCRIT 40.5 % (35.4-49); HEMOGLOBIN 13.7 GM/dL (11.7-16.9); MCH 29.2 pg (25.7-33.7); MCHC 33.9 g/dl (32.0-35.9); MEAN CELL VOLUME 86.3 fl (80-96); MEAN PLT VOLUME 7.7 fl (7.5-11.1); PLATELET COUNT 245 10^3/uL (134-434); RDW 13.8 % (11.9-15.9); WHITE BLOOD COUNT 6.7 K/mm3 (4.0-10.0)
[2023-08-17 07:39] LABS: POTASSIUM 4.1 mmol/L (3.5-5.1)
[2023-08-17 07:55] LABS: ALBUMIN 3.3 g/dl (3.4-5.0); BLOOD UREA NITROGEN 16.7 mg/dL (7-18)
[2023-08-17 07:57] LABS: BILIRUBIN,TOTAL 0.3 mg/dL (0.2-1)
[2023-08-17 07:58] LABS: CALCIUM 8.6 mg/dL (8.5-10.1); PHOSPHOROUS 3.6 mg/dL (2.5-4.9)
[2023-08-17 07:59] LABS: MAGNESIUM 1.8 mg/dL (1.8-2.4)
[2023-08-18] MEDS ORDERED: LORazepam 0.5 MG TABLET PO PRN ×3
[2023-08-18 05:06] VITALS: TEMP 97.7
[2023-08-18 07:24] LABS: HEMOGLOBIN 13.6 GM/dL (11.7-16.9); MCH 29.5 pg (25.7-33.7); MCHC 34.1 g/dl (32.0-35.9); MEAN CELL VOLUME 86.5 fl (80-96); MEAN PLT VOLUME 7.4 fl (7.5-11.1); PLATELET COUNT 228 10^3/uL (134-434); RBC 4.63 M/mm3 (4.00-5.60); RDW 14.2 % (11.9-15.9); WHITE BLOOD COUNT 5.6 K/mm3 (4.0-10.0)
[2023-08-18 07:40] LABS: POTASSIUM 4.4 mmol/L (3.5-5.1)
[2023-08-18 07:43] LABS: ALBUMIN 3.5 g/dl (3.4-5.0); CALCIUM 8.8 mg/dL (8.5-10.1)
[2023-08-18 07:44] LABS: BLOOD UREA NITROGEN 20.8 mg/dL (7-18)
[2023-08-18 07:47] LABS: CREATININE 0.9 mg/dL (0.55-1.3); PHOSPHOROUS 3.6 mg/dL (2.5-4.9)
[2023-08-18 07:48] LABS: BILIRUBIN,TOTAL 0.4 mg/dL (0.2-1); TOT PROT 6.2 g/dl (6.4-8.2)
[2023-08-18 08:39] VITALS: BP 117/80; PULSE 84
== END 2023-08-18 10:54 | disposition other institution (70) ==
LOC: JER 16:23 → INTOOBSV 18:30 → UNDOADMOB 18:30 → JERBED 18:30 → J4W 08-15 03:13 → JERBED 08-15 03:13 → J4W 08-15 09:41 → JERBED 08-15 09:41
PROVIDERS: ADMIT Internal Medicine; ATTEND Internal Medicine
PROC: 3E0337Z Introduction of Electrolytic and Water Balance Substance into Peripheral Vein, Percutaneous Approach (ICD-10-PCS; principal; 2023-08-15)
PROC: 3E033GC Introduction of Other Therapeutic Substance into Peripheral Vein, Percutaneous Approach (ICD-10-PCS; 2023-08-15)
DX: G92.9 Unspecified toxic encephalopathy (principal); F19.90 Other psychoactive substance use, unspecified, uncomplicated; F31.9 Bipolar disorder, unspecified; F20.9 Schizophrenia, unspecified; F41.9 Anxiety disorder, unspecified; N28.89 Other specified disorders of kidney and ureter
CPT/HCPCS: 36415; 36600; 70450-TC; 70551-TC; 71045-TC-FY; 80053; 80307; 81003; 82140; 82803; 83735; 84100; 84484; 85025; 85027; 85610; 85730; 87086; 93005; 93010; 96360; 96374; 99285-25; G0378

== ENCOUNTER 2023-09-26 08:15 | Inpatient (IN) | payer OTHER ==
[2023-09-26 08:56] VITALS: BMI 25.6
[2023-09-26] MEDS ORDERED: BENZOCAINE/MENTHOL (CHLORASEPTIC ) LOZENGE MM PRN (09:05)
[2023-09-26] MEDS ORDERED: BENZONATATE 200 MG CAPSULE PO PRN (09:05)
[2023-09-26] MEDS ORDERED: guaiFENesin 600 MG TABLET.ER (FP) PO PRN (09:05)
[2023-09-26] MEDS ORDERED: IBUPROFEN 600 MG TABLET (FP) PO PRN (09:05)
[2023-09-26] MEDS ORDERED: NICOTINE POLACRILEX 2 MG LOZENGE BC PRN (09:05)
[2023-09-26] MEDS ORDERED: LOPERAMIDE HCL 2 MG CAPSULE PO PRN (09:05)
[2023-09-26] MEDS ORDERED: MAGNESIUM HYDROX 2400MG/30ML ORAL SUSPENSION 30 ML CUP PO PRN (09:05)
[2023-09-26] MEDS ORDERED: ACETAMINOPHEN 325 MG TABLET (FP) PO PRN (09:05)
[2023-09-26] MEDS ORDERED: IBUPROFEN 400 MG TABLET (FP) PO PRN (09:05)
[2023-09-26] MEDS ORDERED: POLYETHYLENE GLYCOL (HEALTHYLAX) 3350 17 GM PACKET PO PRN (09:05)
[2023-09-26] MEDS: PRENATAL VITAMINS W/ FOLIC ACID TABLET (FP) PO SCH (12:19)
[2023-09-26] MEDS: MELATONIN 5 MG TABLETS PO SCH (22:50)
[2023-09-26] MEDS: THIAMINE 100 MG TABLET PO SCH (22:50)
[2023-09-27 11:45] LABS: HEMATOCRIT 38.9 % (35.4-49); HEMOGLOBIN 13.2 GM/dL (11.7-16.9); MCH 29.5 pg (25.7-33.7); MEAN CELL VOLUME 86.8 fl (80-96); PLATELET COUNT 199 10^3/uL (134-434); RBC 4.48 M/mm3 (4.00-5.60); RDW 14.3 % (11.9-15.9)
[2023-09-27 11:58] LABS: ALBUMIN 3.2 g/dl (3.4-5.0); CALCIUM 8.1 mg/dL (8.5-10.1)
[2023-09-27 11:59] LABS: CREATININE 0.9 mg/dL (0.55-1.3)
[2023-09-27 12:01] LABS: BILIRUBIN,TOTAL 0.4 mg/dL (0.2-1); TOT PROT 6.1 g/dl (6.4-8.2)
[2023-09-27 12:05] LABS: BLOOD UREA NITROGEN 18.7 mg/dL (7-18)
[2023-09-29 11:48] LABS: PH,URINE 5.5 (5.0-8.0); URINE APPEARANCE CLEAR; URINE BILIRUBIN NEGATIVE (NEGATIVE); URINE COLOR YELLOW; URINE GLUCOSE (UA) NEGATIVE (NEGATIVE); URINE KETONE NEGATIVE (NEGATIVE); URINE LEUK ESTERASE NEGATIVE (NEGATIVE); URINE NITRITE NEGATIVE (NEGATIVE); URINE PROTEIN NEGATIVE (NEGATIVE); URINE UROBILINOGEN 0.2 mg/dL (0.2-1.0)
[2023-09-30] MEDS: hydrOXYzine PAMOATE 25 MG CAPSULE (FP) PO PRN (21:11)
[2023-10-03] MEDS: TRIAMCINOLONE ACET 0.1% CREAM 15 GM TUBE TP SCH (12:16)
[2023-10-03] MEDS: SUVOREXANT 10 MG TABLET PO SCH (21:24)
[2023-10-03] MEDS: hydrOXYzine PAMOATE 25 MG CAPSULE (FP) PO PRN (21:25)
[2023-10-05] MEDS ORDERED: COLLOIDAL OATMEAL 1 BAR EACH TP PRN (10:25)
[2023-10-05] MEDS ORDERED: diphenhydrAMINE HCL 50 MG CAPSULE PO PRN (10:32)
[2023-10-05] MEDS: CLOTRIMAZOLE 1% CREAM TP SCH (11:40)
[2023-10-07] MEDS: AMOX TR/POT CLAV 875MG/125MG TABLETS (FP) PO SCH (17:31)
[2023-10-07] MEDS: BACLOFEN 10 MG TABLET (FP) PO SCH (21:19)
[2023-10-10] MEDS: SUVOREXANT 10 MG TABLET PO PRN (21:15)
[2023-10-12] MEDS: NICOTINE POLACRILEX 2 MG GUM BUC PRN (15:33)
[2023-10-14 06:57] VITALS: RESP 18
[2023-10-16] MEDS: SUVOREXANT 10 MG TABLET PO PRN (21:26)
[2023-10-19] MEDS: MAG HYDROX/AL HYDROX/SIMETH 30 ML UNIT-DOSE CUP PO PRN (14:37)
[2023-10-20 06:49] VITALS: BP 139/74; PULSE 95; TEMP 97.1
== END 2023-10-20 09:15 | disposition home or self-care (01) | DRG 772 ==
LOC: YASAS 08:15 → Y3NR 11:33 → Y3W 09-27 13:17 → Y5N 09-30 12:33
PROVIDERS: ADMIT Allergy & Immunology; ATTEND Psychiatry & Neurology Pain Medicine
PROC: HZ42ZZZ Group Counseling for Substance Abuse Treatment, Cognitive-Behavioral (ICD-10-PCS; principal; 2023-09-26)
DX: F10.20 Alcohol dependence, uncomplicated (principal); F10.282 Alcohol dependence with alcohol-induced sleep disorder; F14.20 Cocaine dependence, uncomplicated; F17.210 Nicotine dependence, cigarettes, uncomplicated; N40.0 Benign prostatic hyperplasia without lower urinary tract symptoms; K08.89 Other specified disorders of teeth and supporting structures; Z91.041 Radiographic dye allergy status; Z88.5 Allergy status to narcotic agent; Z86.19 Personal history of other infectious and parasitic diseases
CPT/HCPCS: 36415; 80053; 80305; 80307; 81003; 82140; 82962; 83036; 85027; 86780; 87811; 93005; 93010; J0475